=== PATIENT | female | born 1990 | race Caucasian/White ===

== ENCOUNTER → 2018-07-10 | Outpatient (CLI) | payer OTHER | END | disposition home or self-care (01) | LOC: C.PAPS 17:30 | PROVIDERS: ATTEND Obstetrics & Gynecology | DX: Z01.419 Encounter for gynecological examination (general) (routine) without abnormal findings (principal) ==

== ENCOUNTER 2025-05-27 17:17 | Inpatient (IN) ==
[2025-05-27] MEDS ORDERED: LIDOCAINE 1% LOCAL 20 ML VIAL INFIL PRN (19:05)
--- NOTE | 2025-05-27 19:10 | History & Physical Report ---
Date of Service May 27, 2025 Assessment & Plan (1) Encounter for supervision of normal in multigravida: Plan: Given that she has had 140/80s BP on 2 separate office visits, discussed that this warrants gHTN diagnosis - and would recommend proceed with delivery. She is agreeable with plan. Will obtain admission labs, including preeclampsia labs to rule out. FHT/toco. IV fluids. Plan to allow her to eat first, then will check cervix and start induction process. She plans for epidural. (2) Gestational hypertension: Admission and Anticipated Discharge Date Admission Date: May 27, 2025 History of Present Illness Chief Complaint: elevated BP Primary Care Provider: Carol Darling DO 35yo @ 40 01/01, came to L&D after elevated BPs in office on Saturday and again today. 140s/80s. complicated by h/o , Sjogren's, Raynaud's, VICENTE+. Allergies Allergy/AdvReac Type Severity Reaction Status Date / Time No Known Drug Allergies Allergy Unknown nka Verified 05/27/25 16:31 Home Medications Medication Instructions Recorded Confirmed Type 21-iron fu-folic acid PO 10/21/24 05/27/25 History [ Complete] aspirin 81 mg tablet,delayed 81 mg PO DAILY 11/20/24 05/27/25 History release (Adult Low Dose Aspirin) hydrocortisone 1 % topical cream 1 applic topical TID PRN 12/02/24 05/27/25 History (Preparation H Hydrocortisone) omeprazole 20 mg capsule,delayed 20 mg PO BID #180 caps 03/08/25 05/27/25 Rx release hydroxychloroquine 200 mg tablet 200 mg PO BID 05/04/25 05/27/25 History Patient History Medical History (Updated 05/27/25 @ 19:12 by Tiffany Alvares DO) Raynauds disease Hypertension History of chicken pox Surgical History H/O wisdom tooth extraction (2018) H/O hand surgery (2007) L hand/knuckle Hx of tonsillectomy Family History Father Anxiety Heart disease Myocardial infarction, Onset Age: 57 Sister Anxiety Learning disability Mother Diabetes Kidney stone Sarcoidosis of lung Hypertension Grandmother (Maternal) Anxiety Heart disease Myocardial infarction Denies family history of Ovarian cancer Prostate cancer Breast cancer Colorectal cancer Uterine cancer Social History (Updated 05/27/25 @ 17:33 by Eileen Garcia RN) Smoking Status: Never smoker Second Hand Exposure: No; Do You Dip or Chew Tobacco: No; Hx Alcohol Use: No Hx Substance Use: No Preferred Language: Czech Communication Ability: Effective Visual Impairment: Limited Hearing Ability: Normal [employer] Required: No Beliefs That Will Affect Care: None marital status: marital status details: Zana Chavez [phone] Current Living Situation: Spouse and Family Current Living Situation Comment: lives with Spouse, son, no pets current occupational status: employed current occupation: [employer] How many Children do You have: 1 Other Information That Helps Us Care for You: No Feels Safe at Home: Yes Childhood Exposure to Second-Hand Smoke: No Diet: regular Diet Comment: Regular caffeine: Yes (coffee) during the past year weight has: remained stable Dental Care, Regularly: Yes Physical Activity Frequency: 3-4 Times per Week Seatbelt Use: always Sunscreen Use: Yes Do you think of yourself as: straight/heterosexual Assistive Devices: None Review of Systems All systems reviewed & are unremarkable except as noted in HPI & below Physical Exam Physical Exam: FHT Cat 1 [place] irreg Constitutional: WD/WN, vitals as above Respiratory: normal respiratory effort, lungs clear to auscultation no respiratory distress Cardiovascular: Rate/Rhythm: regular rate and regular rhythm Gastrointestinal (Abdomen): Inspection/Auscultation: abdomen normal to inspection Percussion/Palpation: abdomen soft; abdomen nontender Gravid. No s/s chorio or abruption. Skin: no rashes, warm and dry Psychiatric: A+Ox3, euthymic affect Results & Data Vital Signs (Past 12 Hours) Vital Signs Temp Pulse Resp BP 05/27/25 18:58 59 L 128/82 05/27/25 18:41 65 121/84 05/27/25 17:35 36.6 C 67 20 113/85 05/27/25 17:34 67 113/85 Coding Level of Care Code None Diagnoses Encounter for supervision of normal in multigravida Z34.80 Gestational hypertension O13.9
[2025-05-27 19:11] LABS: Hematocrit (blood only) 35.8 % (37.0-47.0); Hemoglobin 12.4 g/dl (12.0-16.0); Mean Corpuscular Hemoglobin 33.3 pg (25.0-34.0); Mean Corpuscular Volume 96.2 fL (80.0-100.0); Platelet Count 235 K/uL (130-400); RDW Standard Deviation 43.5 fL (36.4-46.3); Red Blood Count 3.72 M/uL (4.20-5.40); White Blood Count 9.43 K/ul (4.8-10.8)
[2025-05-27 19:28] LABS: Alanine Aminotransferase 13.0 U/L (7-52); Albumin Globulin Ratio 1.0 (0.9-2); Alkaline Phosphatase 153.0 U/L (34-104); Anion Gap 8.0 (3-11); Bilirubin,Total 0.3 mg/dl (0.2-1.0); Blood Urea Nitrogen 10.0 mg/dl (6-23); Calcium 8.9 mg/dl (8.6-10.3); Carbon Dioxide 23.0 mmol/L (21-32); Chloride 103.0 mmol/L (98-107); Creatinine Clr Calc Pharmacy 133.4 ml/min; Globulin 3.2 gm/dl (2.5-4.0); Glucose 85.0 mg/dl (70-99(Fasting)); Potassium 3.8 mmol/L (3.5-5.1); Sodium 134.0 mmol/L (136-145); Total Protein 6.4 gm/dl (6.0-8.3)
[2025-05-27 21:04] LABS: Total Protein Urine Random < 4.0 mg/dl (0-11.9)
[2025-05-27] MEDS: LACTATED RINGER'S 1,000 ML IV PRN (22:50)
[2025-05-27] MEDS: OXYTOCIN 30 UNITS/NSS 30 UNITS/500 ML BAG IV PRN (23:00)
[2025-05-28] MEDS ORDERED: NALOXONE HCL 0.4 MG/1 ML VIAL/CARP IV PRN (00:59)
[2025-05-28] MEDS ORDERED: fentANYL 2 MCG/ML BUPIVacaine 0.125%-NSS 100ML BAG EPI PRN (00:59)
[2025-05-28] MEDS ORDERED: BUPIVACAINE 0.25% PF 30 ML VIAL EPI PRN (00:59)
[2025-05-28] MEDS ORDERED: SODIUM CHLORIDE 0.9% PF INJ 10 ML VIAL EPI PRN (00:59)
[2025-05-28] MEDS ORDERED: NALBUPHINE HCL INJ 10 MG/ML AMP IV PRN (00:59)
[2025-05-28] MEDS ORDERED: ROPIVACAINE 0.5% PF 5 MG/ML 20 ML VIAL EPI PRN (00:59)
[2025-05-28] MEDS ORDERED: LIDOCAINE 2% MPF LOCAL 5 ML VIAL EPI PRN (00:59)
[2025-05-28] MEDS ORDERED: diphenhydrAMINE 50 MG/ML VIAL IV PRN (00:59)
[2025-05-28] MEDS ORDERED: NALOXONE HCL 1 MG in SODIUM CHLORIDE 0.9% 1,000 ML IV PRN (00:59)
--- NOTE | 2025-05-28 00:59 | Anesthesiology Consultation ---
Date of Service May 28, 2025 Assessment & Plan Chart Review Chart Review: Acceptable Risk for Labor Epidural Consults Requested none History Height/Weight Height: 5 ft 6 in Weight: 81.647 kg Allergies Allergy/AdvReac Type Severity Reaction Status Date / Time No Known Drug Allergies Allergy Unknown nka Verified 05/27/25 16:31 Medications Home Medications Medication Instructions Recorded Confirmed Last Taken 21-iron fu-folic acid PO 10/21/24 05/27/25 05/27/25 [ Complete] aspirin 81 mg tablet,delayed 81 mg PO DAILY 11/20/24 05/27/25 05/27/25 release (Adult Low Dose Aspirin) hydrocortisone 1 % topical cream 1 applic topical TID PRN 12/02/24 05/27/25 Unknown (Preparation H Hydrocortisone) omeprazole 20 mg capsule,delayed 20 mg PO BID #180 caps 03/08/25 05/27/25 05/27/25 release hydroxychloroquine 200 mg tablet 200 mg PO BID 05/04/25 05/27/25 05/27/25 Active Medications Generic Name Dose Route Start Last Admin Trade Name Porfirio PRN Reason Stop Dose Admin Lactated Ringer's 1,000 mls @ 125 mls/hr 05/27/25 19:05/28/25 00:45 Lr IV 05/29/25 19:04 999 mls/hr .Q8H PRN Infusion L&D Protocol Protocol Oxytocin 30 units in 500 mls @ 5 mls/hr 05/27/25 19:05 05/28/25 00:30 Pitocin 30 Units/Nss IV 05/29/25 19:04 0.42 units/hr .Q24H PRN 7 mls/hr Labor Induction/Augmentation Titration Protocol 0.3 UNITS/HR Past Medical History Medical History (Updated 05/27/25 @ 19:12 by Tiffany Alvares DO) Raynauds disease Hypertension History of chicken pox Past Family History Family History Father Anxiety Heart disease Myocardial infarction, Onset Age: 57 Sister Anxiety Learning disability Mother Diabetes Kidney stone Sarcoidosis of lung Hypertension Grandmother (Maternal) Anxiety Heart disease Myocardial infarction Denies family history of Ovarian cancer Prostate cancer Breast cancer Colorectal cancer Uterine cancer Past Surgical History Surgical History H/O wisdom tooth extraction (2019) H/O hand surgery (2008) L hand/knuckle Hx of tonsillectomy Social History Smoking Status: Never smoker Do You Dip or Chew Tobacco: No Hx Alcohol Use: No Alcohol type: beer and wine Hx Substance Use: No Physical Exam Vital Signs Last Vital Signs Temp 36.5 C 05/27/25 22:17 Pulse 64 05/28/25 00:55 Resp 16 05/27/25 22:17 BP 117/79 05/28/25 00:55 Testing Laboratory Results 05/27/25 18:55 05/27/25 18:55
[2025-05-28] MEDS: fentANYL 2 MCG/ML BUPIVacaine 0.125%-NSS 100ML BAG ONE (01:25)
[2025-05-28] MEDS: LIDOCAINE 2%/EPINEPHRINE 1:200,000 20 ML PF ONE (01:25)
--- NOTE | 2025-05-28 01:55 | Labor Progress Brief Note ---
Date of Service May 28, 2025 Subjective Comfortable with epidural. FHT Cat 1 [place] Q 2-4 SVE 5/80/-1 AROM clear fluid. Assessment & Plan Admission and Anticipated Discharge Date Admission Date: May 27, 2025 Results & Data Vital Signs (Past 12 Hours) Vital Signs Temp Pulse Resp BP Pulse Ox 05/28/25 01:52 67 100 05/28/25 01:50 67 100/62 05/28/25 01:47 57 L 100 05/28/25 01:44 61 110/60 05/28/25 01:42 63 99 05/28/25 01:40 60 109/68 05/28/25 01:37 61 98 05/28/25 01:33 60 111/65 05/28/25 01:32 63 100 05/28/25 01:31 62 118/63 05/28/25 01:29 73 112/63 05/28/25 01:27 62 128/63 100 05/28/25 01:25 74 120/63 05/28/25 01:22 76 100 05/28/25 01:17 100 05/28/25 01:17 89 05/28/25 01:17 92 H 87 L 05/28/25 01:12 80 100 05/28/25 01:10 75 91 05/28/25 01:07 71 100 05/28/25 01:03 64 93 05/28/25 01:02 66 96 05/28/25 00:55 64 117/79 05/28/25 00:02 69 120/76 05/27/25 22:17 36.5 C 84 16 139/83 05/27/25 19:13 71 119/73 05/27/25 19:05 16 05/27/25 19:05 36.6 C 16 05/27/25 18:58 59 L 128/82 05/27/25 18:41 65 121/84 05/27/25 17:35 36.6 C 67 20 113/85 05/27/25 17:34 67 113/85 Coding Level of Care Code None
[2025-05-28] MEDS: BUPIVACAINE 0.25% PF 30 ML VIAL ONE (02:08)
[2025-05-28] MEDS: BUPIVACAINE 0.25% PF 30 ML VIAL EPI STA (02:09)
[2025-05-28] MEDS: SODIUM CHLORIDE 0.9% PF INJ 10 ML VIAL ONE (02:09)
[2025-05-28] MEDS: SODIUM CHLORIDE 0.9% PF INJ 10 ML VIAL EPI STA (02:11)
[2025-05-28] MEDS: LIDOCAINE 2%/EPINEPHRINE 1:200,000 20 ML PF EPI STA (02:11)
--- NOTE | 2025-05-28 04:56 | Anesthesia Procedure Note ---
Date of Service May 28, 2025 Anesthesia Epidural Re-Dose Vital Signs Temp Pulse Resp BP Pulse Ox 36.7 C 79 16 109/59 L 100 05/28/25 01:54 05/28/25 04:52 05/28/25 02:04 05/28/25 04:52 05/28/25 04:52 Notes Pain Intensity: 6 Dilatation (cm): 5.5 Effacement (%): 80 Called by nursing to evaluate epidural as the patient is having increased pain. The epidural was re-dosed with the following medications (all medications via epidural route) after negative aspiration of the epidural catheter for CSF/HEME. 2% lidocaine with epi via epidural After Epidural Re-Dose Mental Status: alert / awake / arousable and participated in evaluation Pain: improving with treatment Airway Patency, RR, SpO2: stable & adequate BP & HR: stable & adequate
[2025-05-28] MEDS: OXYTOCIN 30 UNITS/NSS 30 UNITS/500 ML BAG IV PRN (06:10)
--- NOTE | 2025-05-28 06:32 | Delivery Summary ---
Vaginal Delivery Summary Date of Service May 28, 2025 Vaginal Delivery Summary and 2nd Degree LAC Vaginal Delivery Summary: Pre-delivery diagnoses: 35yo @ 39 3/7, gHTN, VICENTE+, Raynaud's, Sjogren's Post-delivery diagnoses: same Procedure: spontaneous vaginal delivery Surgeon: Tiffany Alvares DO Complications: none Findings: Viable male . Apgars: 8/9 . Weight pending, please see nursery records Estimated QBL: 100ml Description of delivery: The patient progressed to complete with epidural anesthesia. She then began to push. She spontaneously vaginally delivered a viable from the cephalic presentation. The head delivered in MARYSOL po sition. The anterior shoulder delivered, followed by the posterior shoulder, followed by the body. The baby was placed on mother's abdomen and a spontaneous cry was heard. Delayed cord clamping was employed, and the cord was doubly clamped and cut. Cord blood was obtained. The placenta was delivered spontaneously intact with a 3-vessel cord. The uterus and vagina were swept of clots and debris. IV pitocin was given. The uterus became firm. The cervix, vagina, and perineum were inspected. 2nd degree perineal tear noted and repaired with 3-0 Vicryl. Excellent hemostasis was observed. The mother and baby are recovering in stable and good condition in the room. Sponge, needle and instrument counts were correct x 2. Tiffany Alvares DO [facility] Vaginal Delivery Charge Vaginal Delivery Codes: 25583 global code for the antepartum, delivery, and post- Delivery Type Details: and 2nd Degree LAC
[2025-05-28 06:43] VITALS: O2SAT 98
[2025-05-28] MEDS ORDERED: HYDROCORTISONE ACETATE 25 MG SUPP PR PRN (07:20)
[2025-05-28] MEDS ORDERED: OXYTOCIN 30 UNITS/NSS 30 UNITS/500 ML BAG IV PRN (07:20)
[2025-05-28] MEDS: DIPHTHER/TETAN/PERTUS Vaccine (Tdap, Adol/Adult) 0.5mL IM ONE (07:50)
[2025-05-28] MEDS: PRENATAL VITAMIN 1 TAB PO SCH (08:36)
[2025-05-28] MEDS: BENZOCAINE 20% SPRY 85 APPLN/85 GM CAN EXT PRN (08:36)
[2025-05-28] MEDS: HYDROXYCHLOROQUINE SULFATE 200 MG TAB PO SCH (08:36)
[2025-05-28] MEDS: DOCUSATE SODIUM 100 MG CAP PO SCH (08:36)
[2025-05-28] MEDS: ACETAMINOPHEN 325 MG TAB PO PRN (08:40)
[2025-05-28] MEDS: IBUPROFEN 600 MG TAB PO PRN (10:50)
--- NOTE | 2025-05-28 11:03 | Anesthesia Procedure Note ---
Date of Service May 28, 2025 Anesthesia Post Epidural Note Vital Signs Vital Signs: Temp Pulse Resp BP Pulse Ox 36.6 C 77 18 125/60 98 05/28/25 09:34 05/28/25 09:34 05/28/25 09:34 05/28/25 09:34 05/28/25 06:52 Pain Intensity Bilateral Back: Pain Intensity: 2 Notes Mental Status: alert / awake / arousable and participated in evaluation Nausea / Vomiting: adequately controlled Pain: adequately controlled Airway Patency, RR, SpO2: stable & adequate BP & HR: stable & adequate Hydration State: stable & adequate Neuraxial Anesthesia: was administered and sensory block resolved Anesthetic Complications: no major complications apparent and Pt Satisfied with anesthetic care Epidural: Removed without complications and With tip intact
[2025-05-29 00:07] VITALS: RESP 16
[2025-05-29 05:55] LABS: Hematocrit (blood only) 30.7 % (37.0-47.0); Hemoglobin 10.1 g/dl (12.0-16.0)
--- NOTE | 2025-05-29 07:07 | Obstetrical Progress Note ---
Date of Service May 29, 2025 Assessment & Plan (1) Gestational hypertension: (2) Encounter for assessment: Plan Blood pressures are great. Doing well. Plan d/c home. Instructions reviewed. Day #:: 1 Subjective Ambulation: ambulating normally Voiding: no voiding problems Passing Gas:: Yes Diet Tolerance:: regular diet Lochia:: Small Feeding Type:: breast feeding Physical Exam Constitutional WD/WN, vitals as above Respiratory normal respiratory effort, lungs clear to auscultation Cardiovascular RRR, no murmur, no edema Extremities: no calf tenderness and no edema Gastrointestinal (Abdomen) soft, nt, nd, ff/nt at u Psychiatric A+Ox3, euthymic affect Results & Data Vital Signs (Past 12 Hours) Vital Signs Temp Pulse Resp BP O2 Del Method 05/28/25 23:45 36.3 C L 58 L 16 111/70 Room Air 05/28/25 19:05 36.4 C L 65 18 110/68 Room Air
[2025-05-29 09:38] VITALS: BP 109/72; PULSE 66; TEMP 97.7
== END 2025-05-29 11:45 | disposition home or self-care (01) | DRG 807 ==
LOC: 4S1 17:17 → 4E2 05-28 10:00